=== PATIENT | male | born 1945 | race American Indian/Alaskan Native ===

== ENCOUNTER 2019-05-10 06:43 | Day surgery (SDC) | payer MEDICARE ==
[2019-05-10] MEDS ORDERED: ECOTRIN PO ONE (06:54)
[2019-05-10] MEDS ORDERED: NACL 0.9% 500 ML 500 ML IV SCH (07:00)
[2019-05-10 07:23] LABS: Eosinophils # (Auto) 0.1 K/mm3 (0.0-0.4); Eosinophils % (Auto) 1.4 % (0.0-4.3); Lymphocytes # (Auto) 1.8 K/mm3 (1.2-5.4); Monocytes # (Auto) 0.7 K/mm3 (0.0-0.8); Monocytes % (Auto) 12.7 % (0.0-7.3)
[2019-05-10 07:39] LABS: BUN/Creatinine Ratio 16; Blood Urea Nitrogen 16 mg/dL (9-20); Calcium 9.4 mg/dL (8.4-10.2); Hemolysis Index 0
[2019-05-10 07:48] LABS: Basophils % (Auto) 0.4 % (0.0-1.8); Hematocrit 36.5 % (35.5-45.6); Hemoglobin 12.8 gm/dl (11.8-15.2); Lymphocytes % (Auto) 32.4 % (13.4-35.0); Mean Corpuscular HGB Conc 35 % (32-34); Mean Corpuscular Volume 77 fl (84-94); Platelet Count 135 K/mm3 (140-440); Red Blood Count 4.77 M/mm3 (3.65-5.03); Red Cell Distribution Width 17.8 % (13.2-15.2)
[2019-05-10] MEDS ORDERED: NITROGLYCERIN SYRINGE 3 ML ONE (08:23)
[2019-05-10] MEDS ORDERED: HEPARIN/NS 5000 UNIT/500ML(CATH LAB) 1,000 ML IR ONE (08:23)
[2019-05-10] MEDS ORDERED: HEPARIN 10,000 UNITS/10 ML ONE (08:23)
[2019-05-10] MEDS ORDERED: CALAN ONE (08:23)
[2019-05-10] MEDS ORDERED: XYLOCAINE 2% INFILTRATI ONE (08:23)
[2019-05-10] MEDS ORDERED: SUBLIMAZE ONE (08:24)
[2019-05-10] MEDS ORDERED: VERSED ONE (08:24)
[2019-05-10 08:48] LABS: INR 1.02 (0.87-1.13)
[2019-05-10] MEDS ORDERED: APRESOLINE IV ONE ×2 (10:09→11:50)
--- NOTE | 2019-05-10 10:45 | Short Stay Summary ---
Short Stay Documentation Date of service: 05/10/19 - History H&P: obtained from office - Allergies and Medications Current Medications: Allergies No Known Allergies Allergy (Verified 05/10/19 08:28) Home Medications Medication Instructions Recorded Confirmed Last Taken Type Aspirin EC 325 mg PO DAILY 05/10/19 05/10/19 05/09/19 History 325mg Atorvastatin [Lipitor] 80 mg PO QHS 05/10/19 05/10/19 05/09/19 History 80mg Clopidogrel [Plavix] 75 mg PO DAILY 05/10/19 05/10/19 05/09/19 History 75mg Finasteride 5 mg PO DAILY 05/10/19 05/10/19 05/09/19 History 5mg Furosemide [Lasix TAB] 40 mg PO DAILY 05/10/19 05/10/19 05/09/19 History 40mg Glimepiride [Amaryl] 2 mg PO DAILY 05/10/19 05/10/19 05/09/19 History 2mg Labetalol [Labetalol 200mg TAB] 200 mg PO DAILY 05/10/19 05/10/19 05/09/19 History 200mg Lisinopril [Zestril TAB] 40 mg PO DAILY 05/10/19 05/10/19 05/09/19 History 40mg Metformin HCl [metFORMIN] 1,000 mg PO BID 05/10/19 05/10/19 05/09/19 History 1000mg Tamsulosin [Flomax] 0.4 mg PO DAILY 05/10/19 05/10/19 05/09/19 History 0.4mg amLODIPine [Norvasc] 10 mg PO DAILY 05/10/19 05/10/19 05/10/19 History 10mg cloNIDine [Catapres] 0.1 mg PO DAILY 05/10/19 05/10/19 05/09/19 History 0.1mg Active Medications Sodium Chloride (Nacl 0.9% 500 Ml) 500 mls @ 50 mls/hr IV DIRECT ALFREDO Stop: 05/10/19 16:59 Last Admin: 05/10/19 08:12 Dose: 50 mls/hr Documented by: - Physical exam General appearance: no acute distress Integumentary: no rash HEENT: Atraumatic Lungs: Clear to auscultation Breasts: deferred Heart: Regular rate Gastrointestinal: normal Male Genitourinary: deferred Female Genitourinary: deferred Rectal Exam: deferred Extremities: no ischemia Neurological: Normal gait - Brief post op/procedure progress note Date of procedure: 05/10/19 Pre-op diagnosis: Shortness of breath Post-op diagnosis: same Procedure: LHC, RHC and LV gram Anesthesia: MAC Findings: See report Surgeon: JON SOLIS Estimated blood loss: none Pathology: none Condition: stable - Hospital course Hospital course: Uneventful - Disposition Condition at discharge: Good Disposition: [id number] TO HOME OR SELFCARE Short Stay Discharge Plan Activity: advance as tolerated Weight Bearing Status: Weight Bear as Tolerated Diet: low fat, low cholesterol, low salt, diabetic Special Instructions: hold Metformin (for 48 hours) Follow up with: VIRY MEJIA MD [Primary Care Provider] - 7 Days Prescriptions: hydrALAZINE [Apresoline TAB] 50 mg PO TID #90 tab Bumetanide [Bumex 1 mg tab] 1 mg PO BID #60 tab Potassium Chloride [K-Dur] 10 meq PO QDAY #30 tablet NIFEdipine [Nifedipine ER] 60 mg PO DAILY #30 tablet.er
[2019-05-10 12:33] VITALS: BP 183/66
--- NOTE | 2019-05-11 09:40 | Cardiac Catherization Report ---
LEFT HEART CATHETERIZATION INDICATION: Severe shortness of breath. ORDERING PHYSICIAN: Dr. Ludwig Zhou. PROCEDURES PERFORMED: 1. Selective left and right coronary angiography. 2. Left ventriculography. 3. Right-sided hemodynamic measurement of oxygen saturation run. 4. Simultaneous RV and LV pressure measurements to evaluate for potential constrictive physiology. DESCRIPTION OF PROCEDURE: After obtaining written consent, the patient was draped using sterile technique. A 2% lidocaine was injected into the right wrist. A 5-British vascular sheath was inserted into the right radial artery. A 5-British JL3.5 catheter was used to selectively engage left coronary artery. A 5-British JR4 catheter was used to selectively engage the right coronary artery. A 5-British pigtail catheter was used to perform a left ventriculogram. A 5-British vascular sheath was inserted into the right brachial vein over a previously inserted intravenous line. A 5-British Romeo-Betsey catheter was used to measure right-sided hemodynamics and perform an oxygen saturation run. No complications occurred during procedure. ESTIMATED BLOOD LOSS: Minimal. SPECIMEN REMOVED: None. TOTAL SEDATION ADMINISTERED: A 1 mg of IV Versed and 25 mcg of IV fentanyl. PHYSICIAN/PATIENT [id number] SEDATION START TIME: 8:52 a.m. PHYSICIAN/PATIENT [id number] SEDATION STOP TIME: 9:21 a.m. Total sedation time is 29 minutes. FINDINGS: HEMODYNAMICS: 1. The aortic pressure was 198/81, LV systolic pressure 2 or 3 mmHg, LV end diastolic pressure 21 mmHg. The mean pulmonary capillary wedge pressure 33 mmHg. The pulmonary artery systolic pressure 60 mmHg. Pulmonary artery diastolic pressure 20 mmHg and the mean pulmonary artery pressure of 37 mmHg. 2. The right ventricular systolic pressure 64 mmHg with a right ventricular end-diastolic pressure of 14 mmHg. 3. The mean right arterial pressure of 13 mmHg. 4. A Soniya cardiac output of 7.03 liters per minute and the Soniya cardiac index of 3.06 liters per minute per m2. 5. The PA saturation was 72%, RV saturation 64%, RA saturation 64%. SVC saturation 64% and aortic saturation 89%. Simultaneous LV and RV pressure measurements did not reveal evidence of discordance with respiration; therefore, no findings to suggest an underlying constrictive physiology. CARDIAC STRUCTURES: Left ventricle is a mildly dilated. Left ventricular ejection fraction is estimated at 55% with normal wall motion. CORONARY ANATOMY: 1. This is a right dominant circulation. 2. The left main has mild luminal irregularities. 3. The left anterior descending artery has a long tubular 60% mid segment stenosis. 4. The left circumflex artery has a bifurcation lesion in the proximal segment involving also the ostium of the first obtuse marginal. There is a 70% stenosis of the proximal circumflex artery and 80% stenosis of the proximal first obtuse marginal. 5. The right coronary artery has evidence of a patent stent in the midsegment. There is evidence of moderate diffuse disease noted in the proximal and mid segment. There is evidence of a focal 50-60% disease noted in the distal right coronary artery. The PDA and the PLV has moderate diffuse nonobstructive disease. IMPRESSION: 1. Evidence of severely elevated right and left-sided filling pressures. 2. Preserved cardiac output with no evidence of an intracardiac shunt. 3. Preserved left ventricular ejection fraction. 4. Obstructive bifurcation lesion in the proximal circ and the first obtuse marginal. 5. Borderline mid left anterior descending tubular stenosis. 6. Patent mid right coronary artery stent with moderate diffuse right coronary artery disease. 7. No evidence of left ventricle, right ventricle pressure discordance and therefore no evidence to suggest underlying constrictive physiology. RECOMMENDATION: The angiograms were reviewed with Intervention Cardiology and no intervention has been recommended. For the time being, we would recommend aggressive afterload reduction as well as p.o. diuresis. If the patient's symptoms do not improve with medical therapy, coronary intervention may be considered in the future. There is no evidence of a constrictive physiology. The patient is to follow up with Dr. Zhou. The patient was also advised to have a sleep study performed to exclude sleep apnea. JOB# [id number] ASHLEY/SNEHAL
== END 2019-05-10 14:14 | disposition home or self-care (01) ==
LOC: CATHLABREC 06:43
PROVIDERS: ATTEND Internal Medicine
DX: I25.10 Atherosclerotic heart disease of native coronary artery without angina pectoris (principal); I10 Essential (primary) hypertension; M19.90 Unspecified osteoarthritis, unspecified site; Z79.899 Other long term (current) drug therapy; Z79.82 Long term (current) use of aspirin; Z79.84 Long term (current) use of oral hypoglycemic drugs; Z87.891 Personal history of nicotine dependence; Z95.5 Presence of coronary angioplasty implant and graft; Z98.890 Other specified postprocedural states; Z83.3 Family history of diabetes mellitus
CPT/HCPCS: 36415; 80048; 82962; 85025; 85610; 85730; 93005; 93010; 93460; 99156; 99157; C1894; J0360; J1644; J2250; J3010; J7040; Q9967